=== PATIENT | female | born 1975 | race Hispanic/Latino ===

== ENCOUNTER 2023-04-15 03:12 | Emergency (ER) | payer OTHER ==
[~2023-04-15] VITALS: Ht 175.3 cm; Wt 63.5 kg
[2023-04-15 03:16] VITALS: O2SAT 98
[2023-04-15] MEDS ORDERED: IBUPROFEN 400 MG TAB PO STA (03:21)
[2023-04-15] MEDS ORDERED: HYDROCODONE/APAP 5MG-325MG TAB ONE (04:13)
[2023-04-15] MEDS ORDERED: ONDANSETRON HCL 4 MG ORAL DISINTEGRATING TAB ONE (04:13)
[2023-04-15] MEDS ORDERED: ONDANSETRON HCL 4 MG ORAL DISINTEGRATING TAB PO ONE (04:15)
[2023-04-15] MEDS: HYDROCODONE/APAP 5MG-325MG TAB PO ONE ×2 (04:16→04:53)
[2023-04-15] MEDS ORDERED: ULTRAM 50MG50 MG PO (05:05)
== END 2023-04-15 05:19 | disposition home or self-care (01) ==
LOC: ER 03:19
DX: S52.592A Other fractures of lower end of left radius, initial encounter for closed fracture (principal); S52.612A Displaced fracture of left ulna styloid process, initial encounter for closed fracture; W10.8XXA Fall (on) (from) other stairs and steps, initial encounter; Y93.01 Activity, walking, marching and hiking; Y92.89 Other specified places as the place of occurrence of the external cause
CPT/HCPCS: 29125; 73110; 99283; Q0162